=== PATIENT | male | born 1990 | race Hispanic/Latino ===

== ENCOUNTER 2019-10-20 17:19 | Emergency (ER) | payer OTHER ==
[2019-10-20] MEDS ORDERED: Lidocaine 1% PF 5 ML VIAL ONE (17:27)
[2019-10-20] MEDS ORDERED: CEFAZOLIN 1 GM VIAL ONE (17:39)
[2019-10-20] MEDS ORDERED: Sterile Water 10 ML ONE (17:40)
[2019-10-20] MEDS ORDERED: Bacitracin 1 PK ONE (17:59)
--- NOTE | 2019-10-20 22:49 | RAD ---
LEFT THIRD FINGER: Date: 10-20-2019 FINDINGS: Laceration is seen at the tip of the third finger. No opaque foreign body or fracture was evident. IMPRESSION: Soft tissue injury. POS: HOME
== END 2019-10-20 18:23 | disposition home or self-care (01) ==
LOC: BURERS 17:19
DX: S61.213A Laceration without foreign body of left middle finger without damage to nail, initial encounter (principal); F17.210 Nicotine dependence, cigarettes, uncomplicated; W26.8XXA Contact with other sharp object(s), not elsewhere classified, initial encounter
CPT/HCPCS: 96374; J0690; J2001